=== PATIENT | female | born 1945 | race Caucasian/White ===

== ENCOUNTER 2016-11-02 19:34 | Emergency (ER) | payer OTHER ==
[~2016-11-02] VITALS: Ht 157.5 cm; Wt 52.6 kg
[~2016-11-02 19:34] MED LIST: ADULT LOW DOSE81 MG PO; AGGRENOX1 CAPSULE PO; ALLEGRA180 MG PO; AMBIEN5 MG PO; ASPIRIN325 MG PO; ATENOLOL25 M1 PO; BUTALB-APAP-CA1 EACH PO; COLACE50 MG; CONSTULOSE10 GM/15 M PO; CYCLOBENZAPRINE10 M1 PO; HYDROCODON-ACE1 EACH PO; LACTULOSE10 GM/151 PO; LEXAPRO10 MG PO; LIDODERM 5% P1 PATCH TD; LIPITOR80 MG PO; MEDROL DOSEPAK4 MG PO; MOTRIN600 MG PO; NAPROSYN500 MG PO; NORVASC2.5 MG PO; OMEPRAZOLE20 MG PO; PERCOCET 5/31 TABLET PO; PRILOSEC40 MG PO; QUETIAPINE FUMA25 MG PO; REPAN 50-325-41 EAC1 PO; STOOL SOFTENER50 MG PO; TENORMIN25 MG PO; TOPAMAX100 MG PO; TOPAMAX25 MG PO; TRAMADOL HCL50 MG PO; ULTRACET1 TABLET PO; VALIUM5 MG PO; VITAMIN B-1250 MC3; [UNRECOGNIZED DRUG - REMARK] PO
[2016-11-02 20:57] LABS: HEMATOCRIT 36.4 % (36.0-46.0); MCH 30.4 PG (29.0-34.0); MCHC 32.7 G/DL (30.0-36.0); MCV 93.1 FL (83-99); PLATELET COUNT 306 K/uL (156-360); RBC DIS.WIDTH-CV 13.1 % (11.8-14.6); RED BLOOD COUNT 3.91 M/uL (3.80-5.20); WHITE BLOOD COUNT 8.3 K/uL (4.1-10.2)
[2016-11-02 21:10] LABS: CHLORIDE 111 mEq/L (99-109); POTASSIUM 3.8 mEq/L (3.7-5.4); SODIUM 137 mEq/L (136-147)
[2016-11-02 21:12] LABS: GLUCOSE 84 mg/dL (70-99)
[2016-11-02 21:13] LABS: ANION GAP 10 MEQ/L (2-14)
[2016-11-02 21:14] LABS: TOTAL BILIRUBIN 0.5 mg/dL (0.0-1.0)
[2016-11-02 21:16] LABS: ALKALINE PHOSPHATASE 97 IU/L (3-129); GFR ESTIMATE (CALCULATED) > 59 mL/min/
[2016-11-02 21:17] LABS: UREA NITROGEN (BUN) 12 mg/dL (9-23)
[2016-11-02 21:19] LABS: CREATINE KINASE 79 IU/L (1-294); TOTAL CK 79 IU/L (1-294); TROP-I INTERPRETATION NEGATIVE; TROPONIN-I < 0.01 ng/mL (0.0-0.30)
[2016-11-02 21:24] LABS: BILIRUBIN NEGATIVE; BLOOD NEGATIVE; COLOR YELLOW ((YELLOW)); GLUCOSE (STRIP) NEGATIVE; KETONES NEGATIVE; LEUKOCYTES NEGATIVE; NITRITE NEGATIVE; PROTEIN (STRIP) NEGATIVE; UROBILINOGEN 0.2 MG/DL (0.2-1.0)
[2016-11-02 21:25] LABS: CK-MB 0.9 ng/mL (0.0-4.9)
[2016-11-02 21:26] LABS: ADD MIUA? NO; UCUL ADDED? NO
[2016-11-02] MEDS ORDERED: TOPAMAX50 MG PO (22:39)
[2016-11-02] MEDS ORDERED: CYANOCOBAL1000 MCG/2 IM (22:41)
[2016-11-02] MEDS ORDERED: OMEPRAZOLE40 M1 PO (22:42)
[2016-11-02] MEDS ORDERED: HYDROMORPHONE HC2 MG PO (22:42)
[2016-11-03] MEDS ORDERED: HYCODAN SYRUP480 ML PO
[2016-11-03] MEDS ORDERED: ZITHROMAX Z-PA250 MG PO
[2016-11-03 00:36] VITALS: BP 146/54
== END 2016-11-03 00:37 | disposition home or self-care (01) ==
LOC: EME 19:34
PROVIDERS: Emergency Medicine
DX: J20.9 Acute bronchitis, unspecified (principal); J45.909 Unspecified asthma, uncomplicated; I10 Essential (primary) hypertension; E78.5 Hyperlipidemia, unspecified
CPT/HCPCS: 70450; 71010; 80053; 81003; 82550; 82553; 84484; 85027; 93005; 94640; 99281; 99285; J7030

== ENCOUNTER 2016-12-11 10:09 | Day surgery (SDC) | payer OTHER ==
[~2016-12-11] VITALS: Ht 157.5 cm; Wt 52.2 kg
[~2016-12-11 10:09] MED LIST changes: +CYANOCOBAL1000 MCG/2 IM; +HYCODAN SYRUP480 ML PO; +HYDROMORPHONE HC2 MG PO; +OMEPRAZOLE40 M1 PO; +TOPAMAX50 MG PO; +ZITHROMAX Z-PA250 MG PO
== END 2016-12-11 11:19 | disposition home or self-care (01) ==
LOC: PAIN 10:09 → SDC 10:45 → PAIN 11:19
PROC: 3E0S33Z Introduction of Anti-inflammatory into Epidural Space, Percutaneous Approach (ICD-10-PCS; principal; 2016-12-11)
DX: M54.16 Radiculopathy, lumbar region (principal); J45.909 Unspecified asthma, uncomplicated; D64.9 Anemia, unspecified; E11.9 Type 2 diabetes mellitus without complications; K21.9 Gastro-esophageal reflux disease without esophagitis; Z86.73 Personal history of transient ischemic attack (TIA), and cerebral infarction without residual deficits; E78.5 Hyperlipidemia, unspecified; K58.9 Irritable bowel syndrome, unspecified; K27.9 Peptic ulcer, site unspecified, unspecified as acute or chronic, without hemorrhage or perforation; Z85.828 Personal history of other malignant neoplasm of skin; Z88.8 Allergy status to other drugs, medicaments and biological substances
CPT/HCPCS: J1100; J2250; J3010

== ENCOUNTER 2017-01-08 12:57 | Day surgery (SDC) | payer OTHER ==
[~2017-01-08] VITALS: Ht 157.5 cm; Wt 52.2 kg
== END 2017-01-08 14:20 | disposition home or self-care (01) ==
LOC: PAIN 12:57 → SDC 13:30 → PAIN 13:30
DX: M46.1 Sacroiliitis, not elsewhere classified (principal); M53.3 Sacrococcygeal disorders, not elsewhere classified; M47.16 Other spondylosis with myelopathy, lumbar region; M51.16 Intervertebral disc disorders with radiculopathy, lumbar region; I10 Essential (primary) hypertension; D51.0 Vitamin B12 deficiency anemia due to intrinsic factor deficiency; E66.9 Obesity, unspecified; Z68.21 Body mass index [BMI] 21.0-21.9, adult; Z86.73 Personal history of transient ischemic attack (TIA), and cerebral infarction without residual deficits; Z85.828 Personal history of other malignant neoplasm of skin; Z79.82 Long term (current) use of aspirin
CPT/HCPCS: J1030; J1100; J2250; J3010; S0020

== ENCOUNTER 2017-03-17 10:52 | Day surgery (SDC) | payer OTHER ==
[~2017-03-17] VITALS: Ht 157.5 cm; Wt 52.2 kg
[~2017-03-17 10:52] MED LIST changes: +CYANOCOBALAM1000 MCG PO
== END 2017-03-17 12:45 | disposition home or self-care (01) ==
LOC: PAIN 10:52 → SDC 11:15 → PAIN 12:45
DX: M47.26 Other spondylosis with radiculopathy, lumbar region (principal); M47.16 Other spondylosis with myelopathy, lumbar region; M46.1 Sacroiliitis, not elsewhere classified; M53.3 Sacrococcygeal disorders, not elsewhere classified; I10 Essential (primary) hypertension; E78.00 Pure hypercholesterolemia, unspecified; J45.909 Unspecified asthma, uncomplicated; K21.9 Gastro-esophageal reflux disease without esophagitis; M51.16 Intervertebral disc disorders with radiculopathy, lumbar region; D51.0 Vitamin B12 deficiency anemia due to intrinsic factor deficiency; Z86.73 Personal history of transient ischemic attack (TIA), and cerebral infarction without residual deficits; Z85.828 Personal history of other malignant neoplasm of skin
CPT/HCPCS: J1030; J1200; J2250; J3010; S0020

== ENCOUNTER 2017-03-27 15:16 | Emergency (ER) | payer OTHER ==
[~2017-03-27] VITALS: Ht 157.5 cm; Wt 51.8 kg
[2017-03-27 16:01] LABS: MCH 30.8 PG (29.0-34.0); MCHC 32.9 G/DL (30.0-36.0); MCV 93.8 FL (83-99); MEAN PLAT.VOLUME 9.8 uM^3 (9.5-12.4); PLATELET COUNT 298 K/uL (156-360); RBC DIS.WIDTH-CV 13.5 % (11.8-14.6); RBC DIS.WIDTH-SD 46.5 % (39-53); RED BLOOD COUNT 3.73 M/uL (3.80-5.20); WHITE BLOOD COUNT 8.7 K/uL (4.1-10.2)
[2017-03-27 16:14] LABS: CHLORIDE 110 mEq/L (99-109); POTASSIUM 4.2 mEq/L (3.7-5.4); SODIUM 138 mEq/L (136-147)
[2017-03-27 16:17] LABS: GLUCOSE 95 mg/dL (70-99)
[2017-03-27 16:18] LABS: ANION GAP 12 MEQ/L (2-14)
[2017-03-27 16:19] LABS: TOTAL BILIRUBIN 0.3 mg/dL (0.0-1.0)
[2017-03-27 16:20] LABS: ALKALINE PHOSPHATASE 108 IU/L (3-129); GFR ESTIMATE (CALCULATED) > 59 mL/min/
[2017-03-27 16:22] LABS: UREA NITROGEN (BUN) 14 mg/dL (9-23)
[2017-03-27 16:24] LABS: LIPASE 24 U/L (1.0-51.0)
[2017-03-27 17:41] LABS: ADD MIUA? YES; BILIRUBIN NEGATIVE; BLOOD NEGATIVE; COLOR YELLOW ((YELLOW)); GLUCOSE (STRIP) NEGATIVE; KETONES NEGATIVE; LEUKOCYTES TRACE; NITRITE NEGATIVE; PROTEIN (STRIP) NEGATIVE; UROBILINOGEN 0.2 MG/DL (0.2-1.0)
[2017-03-27 17:48] LABS: BACTERIA RARE /HPF; EPITHELIAL CELLS RARE /HPF; MUCUS TRACE /LPF; RED BLOOD CELLS 0-5 /HPF (0-5); UCUL ADDED? YES
[2017-03-27] MEDS ORDERED: BENTYL10 MG PO (19:42)
[2017-03-27 20:00] VITALS: BP 134/99
== END 2017-03-27 20:00 | disposition home or self-care (01) ==
LOC: EME 15:16
DX: R10.30 Lower abdominal pain, unspecified (principal); J45.909 Unspecified asthma, uncomplicated; E78.5 Hyperlipidemia, unspecified; G43.909 Migraine, unspecified, not intractable, without status migrainosus; F41.9 Anxiety disorder, unspecified; I10 Essential (primary) hypertension; Z88.8 Allergy status to other drugs, medicaments and biological substances; Z79.891 Long term (current) use of opiate analgesic; Z79.82 Long term (current) use of aspirin
CPT/HCPCS: 74177; 80053; 81003; 83690; 85027; 87086 GA; 99281; 99284; J1885; J7030

== ENCOUNTER 2017-09-10 18:01 | Emergency (ER) | payer OTHER ==
[~2017-09-10] VITALS: Ht 157.5 cm; Wt 49.9 kg
[~2017-09-10 18:01] MED LIST changes: +BENTYL10 MG PO
[2017-09-10 22:02] LABS: APPEARANCE CLEAR ((CLEAR)); BILIRUBIN NEGATIVE; BLOOD NEGATIVE; COLOR YELLOW ((YELLOW)); GLUCOSE (STRIP) NEGATIVE; KETONES NEGATIVE; LEUKOCYTES NEGATIVE; NITRITE NEGATIVE; PROTEIN (STRIP) NEGATIVE; SPECIFIC GRAVITY 1.009 (1.000-1.030); UROBILINOGEN 0.2 MG/DL (0.2-1.0)
[2017-09-10] MEDS ORDERED: LYRICA50 MG PO (22:37)
[2017-09-10] MEDS ORDERED: LIDODERM 5% P1 PATCH TD (22:37)
[2017-09-10 23:07] VITALS: BP 159/80
== END 2017-09-10 23:12 | disposition home or self-care (01) ==
LOC: EME 18:01 → EDBD 18:01 → EME 23:12
PROVIDERS: Emergency Medicine
DX: G89.29 Other chronic pain (principal); M54.5 Low back pain; J45.909 Unspecified asthma, uncomplicated; E78.5 Hyperlipidemia, unspecified; F41.9 Anxiety disorder, unspecified; Z88.5 Allergy status to narcotic agent
CPT/HCPCS: 81003; 99281; 99284; J2270

== ENCOUNTER 2017-10-26 13:10 | Day surgery (SDC) | payer OTHER ==
[~2017-10-26] VITALS: Ht 157.5 cm; Wt 47.2 kg
[~2017-10-26 13:10] MED LIST changes: +LYRICA50 MG PO
== END 2017-10-26 14:43 | disposition home or self-care (01) ==
LOC: PAIN 13:10 → SDC 13:45 → PAIN 14:43
DX: M51.16 Intervertebral disc disorders with radiculopathy, lumbar region (principal); M53.3 Sacrococcygeal disorders, not elsewhere classified; M16.0 Bilateral primary osteoarthritis of hip; J45.909 Unspecified asthma, uncomplicated; Z86.73 Personal history of transient ischemic attack (TIA), and cerebral infarction without residual deficits; E11.9 Type 2 diabetes mellitus without complications; K21.9 Gastro-esophageal reflux disease without esophagitis; E78.00 Pure hypercholesterolemia, unspecified; Z88.5 Allergy status to narcotic agent; Z88.8 Allergy status to other drugs, medicaments and biological substances
CPT/HCPCS: J1100; J2250

== ENCOUNTER 2017-11-26 09:38 | Day surgery (SDC) | payer OTHER ==
[~2017-11-26] VITALS: Ht 157.5 cm; Wt 47.2 kg
[~2017-11-26 09:38] MED LIST changes: +DULERA 200 MCG/13 GM IH; +FEOSOL325 MG PO; +VENTOLIN HFA18 GM IH; +VOLTAREN50 MG PO; +ZYRTEC10 M2 PO
== END 2017-11-26 10:40 | disposition home or self-care (01) ==
LOC: PAIN 09:38 → SDC 10:00 → PAIN 10:40
DX: M51.16 Intervertebral disc disorders with radiculopathy, lumbar region (principal); M47.16 Other spondylosis with myelopathy, lumbar region; M46.1 Sacroiliitis, not elsewhere classified; M53.3 Sacrococcygeal disorders, not elsewhere classified; I10 Essential (primary) hypertension; J45.909 Unspecified asthma, uncomplicated; Z86.73 Personal history of transient ischemic attack (TIA), and cerebral infarction without residual deficits; K21.9 Gastro-esophageal reflux disease without esophagitis; Z79.82 Long term (current) use of aspirin; Z79.891 Long term (current) use of opiate analgesic
CPT/HCPCS: J1100; J2250